=== PATIENT | male | born 1950 | race Caucasian/White ===

== ENCOUNTER → 2016-07-12 | Outpatient (CLI) | payer MEDICARE ==
--- NOTE | 2016-07-12 16:27 | RADRPT ---
PROCEDURE: XR Chest. CLINICAL INDICATION: Preoperative. TECHNIQUE: Single frontal view. COMPARISON: None. FINDINGS: The lungs are clear. The heart size is normal. There is no pleural effusion or pneumothorax. There is a plate and screws in the lower cervical spine. IMPRESSION: 1. Prior cervical spine surgery. 2. Otherwise normal chest x-ray. RPTAT: QQ .Riaz Cardenas MD, MD Date Time Electronically viewed and signed by .Riaz Cardenas MD, on 07/12/2016 16:27 .R/
== END | disposition home or self-care (01) ==
LOC: RAD 15:48
PROVIDERS: ATTEND Internal Medicine
DX: Z01.818 Encounter for other preprocedural examination (principal); R05 Cough
CPT/HCPCS: 71010